=== PATIENT | male | born 1955 | race Caucasian/White ===

== ENCOUNTER 2023-03-28 10:55 | Observation (INO) ==
[2023-03-28] MEDS ORDERED: ONDANSETRON 4 MG/2 ML VIAL IV ONE (11:25)
[2023-03-28] MEDS ORDERED: PANTOPRAZOLE 40 MG VIAL IV ONE (11:25)
[2023-03-28 11:43] LABS: POC Calcium, Ionized 1.32 (1.16-1.32); POC Creatinine 1.7 (0.6-1.2)
[2023-03-28 12:36] LABS: Basophils # (Auto) 0.08 K/mcL (0.00-0.30); Basophils % (Auto) 0.4 % (0.0-2.0); Eosinophils # (Auto) 0.06 K/mcL (0.00-0.70); Eosinophils % (Auto) 0.3 % (0.0-7.0); Hemoglobin 11.6 g/dL (13.7-17.5); Lymphocytes # (Auto) 2.24 K/mcL (1.50-4.80); Lymphocytes % (Auto) 11.9 % (15.5-49.0); Mean Cell Volume 84.4 fL (80.0-100.0); Mean Corpuscular HGB Conc 34.1 g/dL (31.0-36.0); Mean Platelet Volume 11.4 fL (8.8-12.5); Monocytes # (Auto) 1.64 K/mcL (0.10-0.90); Monocytes % (Auto) 8.7 % (1.0-12.0); Neutrophils % (Auto) 77.4 % (38.0-78.0); Platelet Count 338 K/mcL (140-440); RBC 4.03 M/mcL (4.63-6.08); Red Cell Distribution Width 13.7 % (11.5-14.5); WBC 18.8 K/mcL (4.5-11.0)
[2023-03-28] MEDS ORDERED: LACTATED RINGERS 1,000 ML IV ONE (12:41)
[2023-03-28 12:42] LABS: Prothrombin Time 13.8 sec (11.9-14.5)
[2023-03-28 13:06] LABS: ALT/SGPT 16 U/L (<40); AST/SGOT 29 U/L (<40); Albumin 3.3 gm/dL (3.2-5.2); Alkaline Phosphatase 94 U/L (39-117); Bilirubin,Direct < 0.2 mg/dL (0-0.3); Bilirubin,Total 0.3 mg/dL (0.1-1.0); Globulin 3.6 gm/dL (2.2-3.7)
--- NOTE | 2023-03-28 13:49 | Cat Scan Report ---
History: Abdominal pain, blood in stool for one week, prior nephrectomy TECHNIQUE: The abdomen was imaged without contrast in axial plane at 2.5 mm intervals from above the diaphragm through the symphysis pubis. Sagittal and coronal reformats were created. The radiation exposure was limited using dose reduction technology. FINDINGS: There is mild emphysema in both lung bases. No lung mass is present. Evaluation the abdominal organs without contrast is somewhat limited. The liver and spleen are normal in size and homogeneous. The gallbladder appears normal with no calcified stones or thickening of the wall. The bile ducts are nondilated. No abnormality is detected in the pancreas. The stomach is largely decompressed. The duodenal bulb and second portion the duodenum are mildly distended. The kamara are thickened and inflamed and there is inflammation of the surrounding fat. The third and fourth segments of the duodenum are normal. There is some low-attenuation tissue within the second portion of the duodenum which could be ingested material or solid tissue. No adenopathy is present and there is no ascites. The jejunum and ileum appear normal in caliber and noninflamed. The left kidney has been removed. No abnormalities present in the left renal fossa. The right kidney contains approximately 20 calyceal stones. They range in size from 2 to 7 mm. There is no hydronephrosis. There are focal areas of cortical scarring in the lateral portion. There is no obvious renal mass or cyst. The ureters decompressed. Layering posteriorly in the bladder there is a 7 x 11 mm stone. The bladder otherwise appears normal and is normally distended. Prostate is normal in size and contains several calcifications in the transitional zone. Seminal vesicles are small. There are scattered diverticula in the descending and sigmoid colon. There is no evidence of acute diverticulitis. Normal quantity of stool is seen throughout the large intestine. No mass is detected in the large intestine. There is no evidence of appendicitis. There is severe disc space narrowing degeneration at L3-4 and L5-S1 with moderate degeneration at L1-L4 five. IMPRESSION: Abnormal first and second portions of the duodenum. This could be due to peptic ulcer disease and less likely an intraluminal mass. Endoscopy is recommended. Multiple nonobstructing right-sided kidney stones Moderate-sized bladder stone Diverticulosis without diverticulitis Dr. Skinner was called with the results Interpreted and Authenticated by: Titus Enamorado 03/28/23
--- NOTE | 2023-03-28 14:32 | Emergency Department Note ---
HPI General Chief complaint: Rectal Bleed Stated complaint: Rectal Bleeding Time Seen by Provider: 03/28/23 10:58 Source: patient Mode of arrival: wheelchair Limitations: no limitations History of Present Illness HPI Narrative: Narrative: This is a 67-year-old male who presents to the emergency department with 1 week of abdominal pain. Patient states that today he had a bowel movement and noticed that it was black mixed with some bright red blood. The patient is not on any blood thinning medications. He denies any alcohol use. He does report that he has been taking ibuprofen for his abdominal pain. He states his pain is diffuse there is some localization to the midepigastric region. Related Data Home Medications Medication Instructions Recorded Confirmed diphenhydramine HCl 25 mg capsule 25 mg PO QHS PRN Insomnia 05/25/22 03/28/23 (NightTime Sleep Aid (diphenhydramine)) multivitamin 1 tab PO QDAY 05/25/22 03/28/23 ibuprofen 200 mg tablet 200 mg PO .COMPLEX PRN Pain 07/11/22 03/28/23 cholecalciferol (vitamin D3) 50 50 mcg PO QDAY 02/10/23 03/28/23 mcg (2,000 unit) capsule albuterol sulfate 90 mcg/actuation 2 puff inhalation Q6HP PRN wheezing 03/28/23 03/28/23 aerosol inhaler lisinopril 2.5 mg tablet 2.5 mg PO QDAY 03/28/23 03/28/23 Previous Rx's Medication Instructions Recorded fluticasone fur. 200 mcg-umeclid 1 ea PO QDAY #60 ea 09/13/22 62.5 mcg-vilant 25 mcg inhalat.powder (Trelegy Ellipta) metformin 750 mg tablet,extended 750 mg PO BID #180 tabs 01/27/23 release 24 hr Allergies Allergy/AdvReac Type Severity Reaction Status Date / Time oxycodone [From Percocet] AdvReac Intermediate Fever Verified 03/28/23 19:09 Review of Systems ROS ROS Narrative: Narrative: All systems ED: reviewed and negative except as stated. [facility] Narrative Patient History Narrative: Narrative: Medical/Surgical/Family History All Active Problems (Updated 03/29/23 @ 07:36 by Perez Skinner MD) Chronic cough (Chronic) SOB (shortness of breath) (Chronic) Overweight (Chronic) History of COVID-19 (Chronic) Essential hypertension (Chronic) Acquired absence of kidney (Chronic) DM type 2 (diabetes mellitus, type 2) (Chronic) Polymyalgia rheumatica (Chronic) Generalized anxiety disorder (Chronic) Elevated liver enzymes (Chronic) [facility] (current) use of systemic steroids (Chronic) Former smoker (Chronic) Sputum production (Chronic) Wheezing (Chronic) Hydrocele, left (Chronic) Joint pain (Chronic) Muscle stiffness (Chronic) COPD (chronic obstructive pulmonary disease) (Chronic) Nocturnal hypoxia (Chronic) Stomach problems (Chronic) Weight loss (Chronic) Abnormal blood pressure (Chronic) Abnormal blood sugar (Chronic) Periodontal disease (Chronic) Hard of hearing (Chronic) Nocturia (Chronic) Scl-70 antibody positive (Acute) Bleeding duodenal ulcer (Acute) White coat syndrome with diagnosis of hypertension (Acute) Medical History (Updated 03/29/23 @ 07:36 by Perez Skinner MD) Abnormal blood pressure up and down Abnormal blood sugar Acquired absence of kidney left, donated Chronic cough COPD (chronic obstructive pulmonary disease) DM type 2 (diabetes mellitus, type 2) Elevated liver enzymes Essential hypertension Former smoker Quit around 2009 Generalized anxiety disorder Hard of hearing History of COVID-19 Hydrocele, left Joint pain [facility] (current) use of systemic steroids Muscle stiffness Nocturia Nocturnal hypoxia 2 L O2 Overweight Periodontal disease Polymyalgia rheumatica Scl-70 antibody positive SOB (shortness of breath) Sputum production Stomach problems can hardly eat Weight loss Wheezing White coat syndrome with diagnosis of hypertension Surgical History History of kidney surgery (~10/18/92) 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 Alert. No distress. HEENT: NCAT PERRL EOMI. No conjunctivitis. Membranes moist. Neck: Supple, trachea midline Cardiovascular: RRR. No murmur. No rubs. No gallops. Respiratory: No respiratory distress. Breath sounds equal. Lungs clear. Gastrointestinal: Soft. Midepigastric tenderness to palpation no guarding rigidity other peritoneal signs Rectal: Gross melena, guaiac positive Musculoskeletal: No pain. No soft tissue swelling. Good ROM. No signs injury Skin: Warm. Dry. No rash Neurologic: Alert and oriented x3 moves all extremities equally and fully, speech is fluent face is symmetric General Limitations: no limitations Course Vital Signs Vital signs: Vital Signs Temperature 97.0 F 03/28/23 10:56 Pulse Rate 92 H 03/28/23 10:56 Respiratory Rate 18 03/28/23 10:56 Blood Pressure 117/75 03/28/23 10:56 Pulse Oximetry (%) 97 03/28/23 10:56 Oxygen Delivery Method Room Air 03/28/23 10:56 Temperature 99.9 F H 03/29/23 04:00 Pulse Rate 112 H 03/29/23 04:00 Respiratory Rate 18 03/29/23 04:00 Blood Pressure 114/82 03/29/23 04:00 Pulse Oximetry (%) 98 03/29/23 04:00 Oxygen Delivery Method Room Air 03/29/23 04:00 Oxygen Flow Rate (L/min) 0 03/28/23 15:38 [facility] Narrative Medical decision making narrative: Narrative: This is a 67-year-old gentleman who presents to the emergency department with melena and abdominal pain. He is hemodynamically stable some intermittent tachycardia in the low 100s. He was bolused with 80 mg of Protonix on arrival. He does have gross melena on his exam. His CBC shows a hemoglobin of 11.6 his most recent a year ago was around 13. He has a white blood cell count of 18.8, 77% neutrophils. Platelet count of 338. Patient's BUN is 45 with a creatinine of 1.7 this appears to be close to the patient's baseline sodium of 129 blood glucose is 246. Normal liver enzymes and bilirubin. Lipase not suggestive of pancreatitis. A CT scan shows abnormal first and second portions of the duodenum could be peptic ulcer disease less likely intraluminal mass. Fortunately we do have gastroenterology Dr. Lynn who have spoke with Will perform EGD. He would like the patient started on Protonix drip. Lab Data 03/29/23 05:48 03/29/23 05:48 Labs: Lab Results 03/28/23 03/28/23 03/28/23 Range/Units 11:34 11:34 11:34 WBC 18.8 H (4.5-11.0) K/mcL RBC 4.03 L (4.63-6.08) M/mcL Hgb 11.6 L (13.7-17.5) g/dL Hct 34.0 L (40.1-51.0) % POC Hct (41-55) MCV 84.4 (80.0-100.0) fL MCH 28.8 (26.0-34.0) pg MCHC 34.1 (31.0-36.0) g/dL RDW 13.7 (11.5-14.5) % Plt Count 338 (140-440) K/mcL MPV 11.4 (8.8-12.5) fL Immature Gran % (Auto) 1.3 H (0.0-0.5) % Neut % (Auto) 77.4 (38.0-78.0) % Lymph % (Auto) 11.9 L (15.5-49.0) % [place] % (Auto) 8.7 (1.0-12.0) % Eos % (Auto) 0.3 (0.0-7.0) % Baso % (Auto) 0.4 (0.0-2.0) % Lymph # (Auto) 2.24 (1.50-4.80) K/mcL [place] # (Auto) 1.64 H (0.10-0.90) K/mcL Eos # (Auto) 0.06 (0.00-0.70) K/mcL Baso # (Auto) 0.08 (0.00-0.30) K/mcL Immature Gran # 0.24 H (0.00-0.05) K/mcl Absolute Neutrophils 14.51 H (1.80-8.00) K/mcL PT 13.8 (11.9-14.5) sec INR 1.0 (0.9-1.1) VBG Lactic Acid (0.5-2.0) mmol/L POC Sodium (133-145) POC Potassium (3.3-5.1) POC Chloride (96-108) POC Total CO2 (22-30) POC Anion Gap (8.0-16.0) POC BUN (6-20) POC Creatinine (0.6-1.2) POC Glucose (70-105) POC WB Ioniz Calcium (1.16-1.32) Total Bilirubin 0.3 (0.1-1.0) mg/dL Direct Bilirubin < 0.2 (0-0.3) mg/dL AST 29 (<40) U/L ALT 16 (<40) U/L Alkaline Phosphatase 94 (39-117) U/L Total Protein 6.9 (5.9-8.4) gm/dL Albumin 3.3 (3.2-5.2) gm/dL Globulin 3.6 (2.2-3.7) gm/dL Lipase 44 (7-60) U/L 03/28/23 03/28/23 Range/Units 11:34 11:39 WBC (4.5-11.0) K/mcL RBC (4.63-6.08) M/mcL Hgb (13.7-17.5) g/dL Hct (40.1-51.0) % POC Hct 36.0 L (41-55) MCV (80.0-100.0) fL MCH (26.0-34.0) pg MCHC (31.0-36.0) g/dL RDW (11.5-14.5) % Plt Count (140-440) K/mcL MPV (8.8-12.5) fL Immature Gran % (Auto) (0.0-0.5) % Neut % (Auto) (38.0-78.0) % Lymph % (Auto) (15.5-49.0) % [place] % (Auto) (1.0-12.0) % Eos % (Auto) (0.0-7.0) % Baso % (Auto) (0.0-2.0) % Lymph # (Auto) (1.50-4.80) K/mcL [place] # (Auto) (0.10-0.90) K/mcL Eos # (Auto) (0.00-0.70) K/mcL Baso # (Auto) (0.00-0.30) K/mcL Immature Gran # (0.00-0.05) K/mcl Absolute Neutrophils (1.80-8.00) K/mcL PT (11.9-14.5) sec INR (0.9-1.1) VBG Lactic Acid 1.2 (0.5-2.0) mmol/L POC Sodium 129 L (133-145) POC Potassium 4.0 (3.3-5.1) POC Chloride 100 (96-108) POC Total CO2 16.0 L (22-30) POC Anion Gap 18.0 H (8.0-16.0) POC BUN 45 H (6-20) POC Creatinine 1.7 H (0.6-1.2) POC Glucose 246 H (70-105) POC WB Ioniz Calcium 1.32 (1.16-1.32) Total Bilirubin (0.1-1.0) mg/dL Direct Bilirubin (0-0.3) mg/dL AST (<40) U/L ALT (<40) U/L Alkaline Phosphatase (39-117) U/L Total Protein (5.9-8.4) gm/dL Albumin (3.2-5.2) gm/dL Globulin (2.2-3.7) gm/dL Lipase (7-60) U/L Discharge Plan Patient/Caregiver Discharge Instructions 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
[2023-03-28] MEDS ORDERED: KETAMINE 50 MG/ML ML IV PRN (14:43)
[2023-03-28] MEDS ORDERED: PROPOFOL 200 MG/20 ML VIAL IV SCH (14:45)
[2023-03-28] MEDS ORDERED: MIDAZOLAM 2 MG/2 ML VIAL IV SCH (14:45)
--- NOTE | 2023-03-28 14:55 | Internal Med History&Physical ---
HPI History of Present Illness Patient information: Note initiated : 03/28/23 at 2:51 pm Service Date, if different from initiated Date: [] Patient: Braulio Collado a 67 y/o M admitted on . Chief Complaint: [] History of present illness: Mr. Collado is a 67 year old M Presents the ED with abdominal pain and GI bleeding. Patient went to [place] at the brother and while there he developed severe ache and burning abdominal pain with a lot of a lot of gas and tried to belch out all this gas. To continue to worsen each day nothing made it better with milk. He got home last night and prior to getting home he did start to have some dark stools which were concerning to him, however this morning he started have some red blood in the stools as well. He has some nausea but no vomiting. In the ED he was evaluated found to be mildly tachycardic with a hemoglobin of 11.6. Leukocytosis of 18,000 and a sodium of 129. BUN of 45 creatinine 1.7 does have chronic kidney disease which appears to be close to baseline. Dr. Dr. Lynn was contacted and will perform EGD. Patient started on a Protonix drip in the ED. Patient also reports using ibuprofen. Review of Systems: Pertinent positives as above. denies headache/fever/chills/vomiting/chest pain /cough/dyspnea. Remaining 10 point review of system reviewed negative PHYSICAL EXAM General: Alert, Awake, No acute Distress Eyes/N/T: EOMI, no scleral icterus, PERRL, Head/Neck: neck supple, full ROM, normocephalic atraumatic CV: RRR, No murmurs, normal s1/s2 Pulm: Clear b/l, no wheezing/rhonchi/rales, no respiratory distress Abd: soft, nontender, +BS x4 Ext: no clubbing/cyanosis/edema, nontender Neuro: Alert, CN 2-12 grossly intact, no focal deficits, moves all extremities, , sensations intact b/l upper/lower Psychiatric: Skin: warm/dry, normal color PFSH PFSH All Active Problems (Updated 02/10/23 @ 07:48 by Vitor Titus MD) Chronic cough (Chronic) SOB (shortness of breath) (Chronic) Overweight (Chronic) History of COVID-19 (Chronic) Essential hypertension (Chronic) Acquired absence of kidney (Chronic) DM type 2 (diabetes mellitus, type 2) (Chronic) Polymyalgia rheumatica (Chronic) Generalized anxiety disorder (Chronic) Elevated liver enzymes (Chronic) residential (current) use of systemic steroids (Chronic) Former smoker (Chronic) Sputum production (Chronic) Wheezing (Chronic) Hydrocele, left (Chronic) Joint pain (Chronic) Muscle stiffness (Chronic) COPD (chronic obstructive pulmonary disease) (Chronic) Nocturnal hypoxia (Chronic) Stomach problems (Chronic) Weight loss (Chronic) Abnormal blood pressure (Chronic) Abnormal blood sugar (Chronic) Periodontal disease (Chronic) Hard of hearing (Chronic) Nocturia (Chronic) Scl-70 antibody positive (Acute) White coat syndrome with diagnosis of hypertension (Acute) Medical History (Updated 02/10/23 @ 07:48 by Vitor Titus MD) Abnormal blood pressure up and down Abnormal blood sugar Acquired absence of kidney left, donated Chronic cough COPD (chronic obstructive pulmonary disease) DM type 2 (diabetes mellitus, type 2) Elevated liver enzymes Essential hypertension Former smoker Quit around 2009 Generalized anxiety disorder Hard of hearing History of COVID-19 Hydrocele, left 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) use of systemic steroids Muscle stiffness Nocturia Nocturnal hypoxia 2 L O2 Overweight Periodontal disease Polymyalgia rheumatica Scl-70 antibody positive SOB (shortness of breath) Sputum production Stomach problems can hardly eat Weight loss Wheezing White coat syndrome with diagnosis of hypertension Surgical History History of kidney surgery (~10/18/92) 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 Family History Mother Diabetes Heart disease Cancer Hypertension Brother Kidney disease Cancer Family/Other Alcoholism CAD (coronary artery disease) Diabetes Hypertension Social History marital status: single occupational status: retired smoking status: Former smoker quit date: 09/11/01 pack-years: 40 alcohol intake frequency: does not drink substance use type: marijuana MEDS/ALLERGIES Home Medications and Allergies Home Medications Medication Instructions Recorded Confirmed Type calcium carbonate 600 mg calcium 600 mg PO QDAY 12/30/21 02/10/23 History (1,500 mg) tablet (Calcium) diphenhydramine HCl 25 mg capsule 25 mg PO QHS PRN 05/25/22 02/10/23 History (NightTime Sleep Aid (diphenhydramine)) epinephrine 0.125 mg/actuation 1 puff inhalation Q4H PRN 05/25/22 02/10/23 History aerosol inhaler (Primatene Mist) multivitamin 1 tab PO QDAY 05/25/22 02/10/23 History stool softener PO HS 05/25/22 02/10/23 History ibuprofen 200 mg tablet 200 mg PO .COMPLEX PRN 07/11/22 02/10/23 History fluticasone fur. 200 mcg-umeclid 1 ea PO QDAY #60 ea 09/13/22 02/10/23 Rx 62.5 mcg-vilant 25 mcg inhalat.powder (Trelegy Ellipta) albuterol sulfate 90 mcg/actuation 2 puff inhalation Q6H PRN 01/25/23 02/10/23 Rx aerosol inhaler shortness of breath or wheezing #8.5 grams lisinopril 2.5 mg tablet 2.5 mg PO QDAY #90 tabs 01/27/23 02/10/23 Rx metformin 750 mg tablet,extended 750 mg PO BID #180 tabs 01/27/23 02/10/23 Rx release 24 hr cholecalciferol (vitamin D3) 50 50 mcg PO QDAY 02/10/23 02/10/23 History mcg (2,000 unit) capsule Allergies Allergy/AdvReac Type Severity Reaction Status Date / Time acetaminophen [From Percocet] Allergy Unknown Unknown Verified 03/28/23 10:58 oxycodone [From Percocet] Allergy Unknown Fever Verified 03/28/23 10:58 EXAM Constitutional Vitals: Temp Pulse Resp BP Pulse Ox O2 Del Method 97.0 F 98 H 18 129/87 96 Room Air 03/28/23 10:56 03/28/23 14:31 03/28/23 10:56 03/28/23 14:31 03/28/23 14:31 03/28/23 10:56 DATA Data Completed and Pending Labs: Labs from last 24 hours 03/28/23 03/28/23 03/28/23 11:39 11:34 11:34 WBC RBC Hgb Hct POC Hct 36.0 L MCV MCH MCHC RDW Plt Count MPV Immature Gran % (Auto) Neut % (Auto) Lymph % (Auto) [place] % (Auto) Eos % (Auto) Baso % (Auto) Lymph # (Auto) [place] # (Auto) Eos # (Auto) Baso # (Auto) Immature Gran # Absolute Neutrophils PT INR VBG Lactic Acid 1.2 POC Sodium 129 L POC Potassium 4.0 POC Chloride 100 POC Total CO2 16.0 L POC Anion Gap 18.0 H POC BUN 45 H POC Creatinine 1.7 H POC Glucose 246 H POC WB Ioniz Calcium 1.32 Total Bilirubin 0.3 Direct Bilirubin < 0.2 AST 29 ALT 16 Alkaline Phosphatase 94 Total Protein 6.9 Albumin 3.3 Globulin 3.6 Lipase 44 03/28/23 03/28/23 11:34 11:34 WBC 18.8 H RBC 4.03 L Hgb 11.6 L Hct 34.0 L POC Hct MCV 84.4 MCH 28.8 MCHC 34.1 RDW 13.7 Plt Count 338 MPV 11.4 Immature Gran % (Auto) 1.3 H Neut % (Auto) 77.4 Lymph % (Auto) 11.9 L [place] % (Auto) 8.7 Eos % (Auto) 0.3 Baso % (Auto) 0.4 Lymph # (Auto) 2.24 [place] # (Auto) 1.64 H Eos # (Auto) 0.06 Baso # (Auto) 0.08 Immature Gran # 0.24 H Absolute Neutrophils 14.51 H PT 13.8 INR 1.0 VBG Lactic Acid POC Sodium POC Potassium POC Chloride POC Total CO2 POC Anion Gap POC BUN POC Creatinine POC Glucose POC WB Ioniz Calcium Total Bilirubin Direct Bilirubin AST ALT Alkaline Phosphatase Total Protein Albumin Globulin Lipase A/P Narrative A/P Narrative: A: *GIB, likely upper: *Anemia, acute blood loss: 2/2 above *Metabolic acidosis: *Leukocytosis: Suspect reactive, monitor for infection *Hyponatremia: *DM: *HTN: *COPD(not on home O2): *CKD III: P: -NPO -Dr. Gonsalves for endoscopy -Protonix drip -Further recs per GI -serial H&H -avoid NSAIDS -Follow-up acid-base -Monitor electrolytes replace as needed follow-up sodium -Continue home FERNY and home IH's -SSI, hold metformin for now -Home medication reconciliation -ppx: SCD Time Spent With Patient Time: Total time spent is greater than 50% in coordination of care (as documented) at patient's floor/unit and/or counseling patient: Initial: Total time with patient: 55 - 74 minutes
[2023-03-28] MEDS: PANTOPRAZOLE 80 MG in 0.9 % SODIUM CHLORIDE 100 ML IV SCH ×2 (15:02→23:34)
[2023-03-28] MEDS ORDERED: POTASSIUM CHLORIDE 40 MEQ in DEXTROSE 5% IN WATER 500 ML IV PRN (16:12)
[2023-03-28] MEDS ORDERED: HYDROcodone/APAP 5/325MG TABLET PO PRN (16:12)
[2023-03-28] MEDS ORDERED: POTASSIUM CHLORIDE 20 MEQ TABLET PO PRN ×2 (16:12)
[2023-03-28] MEDS ORDERED: 0.9 % SODIUM CHLORIDE 1,000 ML IV SCH (16:12)
[2023-03-28] MEDS ORDERED: MAGNESIUM SULFATE 2 GM/50 ML BAG IV PRN (16:12)
[2023-03-28] MEDS ORDERED: LABETALOL 5 MG/ML ML IV PRN (16:12)
[2023-03-28] MEDS ORDERED: ONDANSETRON 4 MG/2 ML VIAL IV PRN (16:12)
[2023-03-28] MEDS ORDERED: ACETAMINOPHEN 325 MG TABLET PO PRN (16:12)
[2023-03-28] MEDS ORDERED: IPRATROPIUM/ALBUTEROL 3 ML AMPUL.NEB NEB PRN (16:12)
[2023-03-28] MEDS ORDERED: diphenhydrAMINE 25 MG CAPSULE PO PRN (18:40)
[2023-03-28] MEDS ORDERED: DEXTROSE 50% 50 ML VIAL IV PRN (18:40)
[2023-03-28] MEDS ORDERED: DEXTROSE 31 GM ORAL.SUSP PO PRN (18:40)
[2023-03-28] MEDS: INSULIN LISPRO 1 UNIT/0.01 ML UNIT SQ SCH (21:25)
[2023-03-28] MEDS: 0.9 % SODIUM CHLORIDE 10 ML SYRINGE IV SCH (22:00)
[2023-03-29] MEDS: 0.9 % SODIUM CHLORIDE 10 ML SYRINGE IV SCH ×2 (05:54→13:20)
[2023-03-29 07:10] LABS: Hemoglobin 9.9 g/dL (13.7-17.5); Mean Cell Volume 89.9 fL (80.0-100.0); Mean Corpuscular HGB Conc 31.9 g/dL (31.0-36.0); Mean Platelet Volume 11.1 fL (8.8-12.5); Platelet Count 289 K/mcL (140-440); RBC 3.45 M/mcL (4.63-6.08); Red Cell Distribution Width 14.1 % (11.5-14.5); WBC 18.2 K/mcL (4.5-11.0)
[2023-03-29 07:42] LABS: ALT/SGPT 12 U/L (<40); AST/SGOT 27 U/L (<40); Albumin 2.8 gm/dL (3.2-5.2); Albumin/Globulin Ratio 0.9 (1.0-2.3); Alkaline Phosphatase 83 U/L (39-117); Bilirubin,Direct < 0.2 mg/dL (0-0.3); Bilirubin,Total 0.3 mg/dL (0.1-1.0); Blood Urea Nitrogen 34 mg/dL (8-23); Calcium 8.4 mg/dL (8.6-10.4); Carbon Dioxide 16 mmol/L (22-30); Chloride 103 mmol/L (96-108); Globulin 3.1 gm/dL (2.2-3.7); Glomerular Filtration Rate 56; Glucose 120 mg/dL (70-105); Lactate Dehydrogenase 215 U/L (135-225); Triglycerides 164 mg/dL (<150)
[2023-03-29] MEDS ORDERED: diphenhydrAMINE 25 MG CAPSULE PO PRN (07:47)
--- NOTE | 2023-03-29 07:47 | Internal Med Progress Note ---
SUBJECTIVE Subjective Patient information: Note initiated : 03/29/23 at 7:40 am Service Date, if different from initiated Date: [] Patient: Braulio Collado a 67 y/o M admitted on 03/28/23. Chief Complaint: [] Interval history: History of present illness: Mr. Collado is a 67 year old M Presents the ED with abdominal pain and GI bleeding. Patient went to [place] at the brother and while there he developed severe ache and burning abdominal pain with a lot of a lot of gas and tried to belch out all this gas. To continue to worsen each day nothing made it better with milk. He got home last night and prior to getting home he did start to have some dark stools which were concerning to him, however this morning he started have some red blood in the stools as well. He has some nausea but no vomiting. In the ED he was evaluated found to be mildly tachycardic with a hemoglobin of 11.6. Leukocytosis of 18,000 and a sodium of 129. BUN of 45 creatinine 1.7 does have chronic kidney disease which appears to be close to baseline. . Dr. Lynn was contacted and will perform EGD. Patient started on a Protonix drip in the ED. Patient also reports using ibuprofen. 03/29 Patient stated he had some dark bowel movements but no blood. Patient feeling a lot better. Does want to go home. His white blood cell count is still 18,000 but he denies any fevers or feeling ill. We will obtain peripheral smear. Patient really wants to go home today. Dr. Lynn would like 24 hours of Protonix drip. Possibly discharge later today depending. EGD yesterday with several duodenal ulcers but no stigmata of bleeding. Review of Systems: Pertinent positives as above. denies headache/fever/chills/vomiting/chest pain/cough/dyspnea. PHYSICAL EXAM General: Alert, Awake, No acute Distress Eyes/N/T: EOMI, no scleral icterus, Head/Neck: neck supple, full ROM, CV: RRR, No murmurs, Pulm: Clear b/l, no wheezing/rhonchi/rales, no respiratory distress Abd: soft, nontender, +BS x4 Ext: no clubbing/cyanosis/edema, nontender Neuro: Alert, no focal deficits, moves all extremities, , sensations intact b/l upper/lower Psychiatric: Skin: warm/dry, normal color Constitutional Vitals: Vital Signs Temp Pulse Resp BP Pulse Ox O2 Del Method O2 Flow Rate 99.9 F H 112 H 18 114/82 98 Room Air 0 03/29/23 04:00 03/29/23 04:00 03/29/23 04:00 03/29/23 04:00 03/29/23 04:00 03/29/23 04:00 03/28/23 15:38 Period Temp Pulse Resp BP Sys/Sparks Pulse Ox O2 Del Method O2 Flow Rate Last 24 Hr 97.0 F-99.9 F 92-114 18-35 110-140/73-122 94-99 Nasal Cannula- Room Air 0-5 Intake and Output 03/28/23 03/29/23 03/29/23 19:59 03:59 11:59 Intake Total 385 1092 Output Total 600 250 Balance -215 842 Weight 81.556 kg Intake & Output: Intake & Output 03/28/23 03/29/23 03/29/23 19:59 03:59 11:59 Intake Total 385 1092 Output Total 600 250 Balance -215 842 Weight 81.556 kg Intake: IV 85 992 Sodium Chloride 0.9% 1,000 ml @ 992 75 mls/hr IV .[id number] [facility] Rx#: [id number] Protonix 80 mg In Sodium 85 Chloride 0.9% 100 ml @ 8 MG/HR 10 mls/hr IV Q10H DENICE Rx#: [id number] Oral 300 100 Output: Void Amount 600 250 Other: Urine Appearance Clear Clear Urine Color Yellow Yellow # Voids 1 2 OBJ DATA Labs 03/29/23 05:48 03/29/23 05:48 Labs: Abnormal Lab Results 03/29/23 03/28/23 03/28/23 05:48 11:39 11:34 WBC 18.2 H 18.8 H RBC 3.45 L 4.03 L Hgb 9.9 L 11.6 L Hct 31.0 L 34.0 L POC Hct 36.0 L Immature Gran % (Auto) 1.3 H Lymph % (Auto) 11.9 L Person # (Auto) 1.64 H Immature Gran # 0.24 H Absolute Neutrophils 14.51 H POC Sodium 129 L POC Total CO2 16.0 L POC Anion Gap 18.0 H POC BUN 45 H POC Creatinine 1.7 H POC Glucose 246 H Meds: Medications Acetaminophen (Acetaminophen 325 Mg Tablet) 650 mg PO Q6HP PRN; Protocol PRN Reason: Per Pain Protocol/Fever > 101 Hydrocodone Bitart/Acetaminophen (Hydrocodone/Apap 5/325mg Tablet) 1 tab PO Q4HP PRN PRN Reason: PAIN LEVEL 3-6 Albuterol/Ipratropium (Ipratropium/Albuterol 3 Ml Ampul.Neb) 3 ml NEB Q4HP PRN PRN Reason: Shortness Of Breath Dextrose (Dextrose 50% 50 Ml Vial) 0 ml IV UD PRN PRN Reason: Per Sliding Scale Diagnostic Test (Pha) (Accu-Chek 1 Each Strip) 1 each FS [facility] Last Admin: 03/28/23 21:24 Dose: 1 each Diphenhydramine HCl (Diphenhydramine 25 Mg Capsule) 25 mg PO HSP PRN PRN Reason: Insomnia Last Admin: 03/28/23 21:19 Dose: 25 mg Glucose (Dextrose 31 Gm Oral.Susp) 15 gm PO PRN PRN PRN Reason: Hypoglycemia Pantoprazole Sodium 80 mg/ (Sodium Chloride) 100 mls @ 10 mls/hr IV Q10H [facility] Last Admin: 03/28/23 23:34 Dose: 8 mg/hr, 10 mls/hr Potassium Chloride 40 meq/ (Dextrose) 520 mls @ 130 mls/hr IV UD PRN PRN Reason: Potassium < 3 Magnesium Sulfate (Magnesium Sulfate) 2 gm in 50 mls @ 50 mls/hr IV UD PRN PRN Reason: Magnesium </= 1.6 Insulin Human Lispro (Insulin Lispro 1 Unit/0.01 Ml Unit) 0 unit SQ [facility]; Protocol Last Admin: 03/28/23 21:25 Dose: 1 units Labetalol HCl (Labetalol 5 Mg/Ml Ml) 0 mg IV Q2HP PRN PRN Reason: Hypertension Ondansetron HCl (Ondansetron 4 Mg/2 Ml Vial) 4 mg IV Q4HP PRN PRN Reason: Nausea And Vomiting Fluticasone- Umeclidin-Vilanter [ Trelegy Ellipta] Inhaler 1 dose PO QDAY [facility] Potassium Chloride (Potassium Chloride 20 Meq Tablet) 40 meq PO UD PRN PRN Reason: Potssium is 3-3.5 Potassium Chloride (Potassium Chloride 20 Meq Tablet) 40 meq PO UD PRN PRN Reason: Potassium < 3 Sodium Chloride (0.9 % Sodium Chloride 10 Ml Syringe) 10 ml IV Q8 [facility] Last Admin: 03/29/23 05:54 Dose: 10 ml A/P Narrative A/P Narrative: A: *GIB, upper: likey 2/2 NSAID use -EGD with several duodenal ulcers no active bleeding *Anemia, acute blood loss: 2/2 above *Metabolic acidosis: *Leukocytosis: Suspect reactive, monitor for infection -persistent *Hyponatremia: improved *DM: *HTN: *COPD(not on home O2): *CKD III: P: -on clear liquids -Dr. Gonsalves following -Protonix drip to to PO ibd -serial H&H -avoid NSAIDS -peripheral smear pending -Monitor electrolytes replace as needed follow-up sodium -Continue home FERNY and home IH's -SSI, hold metformin for now -ppx: SCD Time Spent With Patient Time: Total time spent is greater than 50% in coordination of care (as documented) at patient's floor/unit and/or counseling patient: Subsequent: Total time with patient: 35 - 49 minutes
[2023-03-29] MEDS: INSULIN LISPRO 1 UNIT/0.01 ML UNIT SQ SCH ×3 (07:53→17:30)
[2023-03-29] MEDS: SODIUM BICARBONATE 650 MG TABLET PO SCH ×2 (08:26→14:23)
[2023-03-29] MEDS ORDERED: Fluticasone-Umeclidin-Vilanter [Trelegy Ellipta] Inhaler PO SCH (09:00)
[2023-03-29] MEDS ORDERED: LISINOPRIL 2.5 MG TABLET PO SCH (09:00)
[2023-03-29] MEDS: PANTOPRAZOLE 80 MG in 0.9 % SODIUM CHLORIDE 100 ML IV SCH ×2 (09:49→10:54)
[2023-03-29 10:21] LABS: Band Neutrophils % 7 % (0-10); Basophils % (Manual) 1 % (0-2); Lymphocytes % 7 % (15-49); Metamyelocytes % 1 %; Monocytes % (Manual) 5 % (1-12); Platelet Estimate NORMAL (Normal); RBC Morphology NORMAL (Normal); Segmented Neutrophils % 79 % (38-78)
--- NOTE | 2023-03-29 10:50 | EGD Procedure Note ---
EGD Procedure Notes Procedure Information Patient information: Note initiated : 03/29/23 at 10:47 am Patient: Braulio Collado 67 y/o M admitted on 03/28/23 for Rectal Bleeding. Date of Procedure: 03/28/23 Pre-Op Diagnosis: Abdominal pain. Melena. Post-Op Diagnosis: Duodenal ulcers x 3. Procedure: EGD with Bx Procedure Narrative: The procedure, alternatives and risks were discussed with the patient and the patient's questions were answered. With endoscopist-administered intravenous sedation, the Olympus video endoscope was introduced into the esophagus. The esophagus, stomach, and duodenum were examined sequentially. There is no esophagitis; there is a small hiatal hernia. Two ulcers were seen in the duodenal bulb as well as post bulbar duodenal ulcer. No visible vessel was seen so the risk of rebleeding is low, but if he rebleeds, he will require transfer to a facility that has interventional radiology. The gastric mucosa, antrum, pyloric ring and duodenum were otherwise normal. Antral biopsy was taken for PAMELA test. The scope was withdrawn. Grafts/Implants: No Findings: Duodenal ulcers x 3. Complications: none Surgeon: Bar Gonsalves Estimated blood loss: 0 Specimens Removed/Pathology: other Condition: stable Disposition: same day Assessment: Duodenal ulcers x 3. No aspirin and NSAIDs. He should remain on PPI therapy for his lifetime.
[2023-03-29 15:33] LABS: Hematocrit 30.2 % (40.1-51.0)
--- NOTE | 2023-03-29 16:12 | Discharge Summary ---
Discharge Provider Provider IMPORTANT FOLLOW-UP INFORMATION FOR PCP: Patient information: Note initiated : 03/29/23 at 4:08 pm Service Date, if different from initiated Date: [] Patient: Braulio Collado 67 y/o M admitted on 03/28/23. Chief Complaint: [] Date of admission: 03/28/23 15:56 Discharge date: 03/29/23 Primary care physician: Vitor Titus MD Consults: 03/28/23 Consult to Physician [CONS] Stat Comment: Consulting Provider: Radu Saab Reason For Exam: Physician to Consult 03/28/23 16:12 Consult to Physician [CONS] Urgent Comment: Consulting Provider: Bar Gonsalves Reason For Exam: Physician to Consult COURSE Hospital Course Hospital course: Mr. Collado is a 67 year old male who presented to the ED with abdominal pain and melena. The patient went to [place] at the brother and while there he developed severe ache and burning abdominal pain with a lot of a lot of gas and tried to belch out all this gas. To continue to worsen each day nothing made it better with milk. He got home last night and prior to getting home he did start to have some dark stools which were concerning to him, however this morning he started have some red blood in the stools as well. He has some nausea but no vomiting. In the ED he was evaluated found to be mildly tachycardic with a hemoglobin of 11.6. Leukocytosis of 18,000 and a sodium of 129. BUN of 45 creatinine 1.7 does have chronic kidney disease which appears to be close to baseline. Dr. Dr. Lynn was contacted and will perform EGD. Patient started on a Protonix drip in the ED. Patient also reports using ibuprofen. 03/29 Patient stated he had some dark bowel movements but no blood. Patient feeling a lot better. Does want to go home. His white blood cell count is still 18,000 but he denies any fevers or feeling ill. We will obtain peripheral smear. Patient really wants to go home today. Dr. Lynn would like 24 hours of Protonix drip. Possibly discharge later today depending. EGD yesterday with several duodenal ulcers but no stigmata of bleeding. The patient stated that he would like to discharge the afternoon. Repeat hemoglobin level was stable. Discussed avoiding NSAIDs with the patient and high-dose PPI treatment for a weeks following hospital discharge. Patient was instructed to return to the ED urgently if he develops recurrent melena or bloody stools. Patient was d ischarged home on Protonix 40 mg p.o. twice daily which she will take for at least 8 weeks then he can continue with once a day PPI. Follow-up with primary care provider and gastroenterology. Follow-up pending EGD biopsy pathology results, pending peripheral blood smear, repeat hemoglobin and WBC. Physical exam Head: Atraumatic, normal inspection. Eyes: normal appearance, no scleral icterus. Neck: full ROM Respiratory: no respiratory distress. GI/Abdominal: soft, nontender, no guarding. Extremities: full range of motion, nontender. Neurological: CN II-XII intact, intact motor, intact sensation. Psychiatric: normal mood. Skin: warm, normal color Discharge diagnosis: Upper GI bleed Time Spent with Patient Time attestation: Total time spent providing and/or coordinating discharge services: Time spent: Less than 30 minutes EXAM Constitutional Vitals: Temp Pulse Resp BP Pulse Ox O2 Del Method O2 Flow Rate 97.7 F 94 H 16 98/73 97 Room Air 0 03/29/23 11:47 03/29/23 11:47 03/29/23 07:40 03/29/23 11:48 03/29/23 11:47 03/29/23 08:00 03/28/23 15:38 Discharge Data Data Completed and Pending Labs on day of discharge: Labs from last 24 hours 03/29/23 03/29/23 03/29/23 14:46 05:48 05:48 WBC RBC Hgb 10.0 L Hct 30.2 L MCV MCH MCHC RDW Plt Count MPV Seg Neutrophils % Band Neutrophils % Lymphocytes % Monocytes % (Manual) Basophils % (Manual) Metamyelocytes % Platelet Estimate RBC Morphology Smear Path Review Pending Sodium 134 Potassium 4.0 Chloride 103 Carbon Dioxide 16 L Anion Gap 15.0 BUN 34 H Creatinine 1.3 H GFR Calculation 56 Glucose 120 H Uric Acid 8.0 Calcium 8.4 L Phosphorus 3.0 Magnesium 1.8 Total Bilirubin 0.3 Direct Bilirubin < 0.2 GGT 23 AST 27 ALT 12 Alkaline Phosphatase 83 Lactate Dehydrogenase 215 Total Protein 5.9 Albumin 2.8 L Globulin 3.1 Albumin/Globulin Ratio 0.9 L Triglycerides 164 H 03/29/23 05:48 WBC 18.2 H RBC 3.45 L Hgb 9.9 L Hct 31.0 L MCV 89.9 MCH 28.7 MCHC 31.9 RDW 14.1 Plt Count 289 MPV 11.1 Seg Neutrophils % 79 H Band Neutrophils % 7 Lymphocytes % 7 L Monocytes % (Manual) 5 Basophils % (Manual) 1 Metamyelocytes % 1 Platelet Estimate Normal RBC Morphology Normal Smear Path Review Sodium Potassium Chloride Carbon Dioxide Anion Gap BUN Creatinine GFR Calculation Glucose Uric Acid Calcium Phosphorus Magnesium Total Bilirubin Direct Bilirubin GGT AST ALT Alkaline Phosphatase Lactate Dehydrogenase Total Protein Albumin Globulin Albumin/Globulin Ratio Triglycerides Discharge Plan Patient/Caregiver Discharge Instructions Activity: resume usual activities as tolerated Diet: Consistent Carbohydrate Instructions: Gastrointestinal Bleeding (GEN), Upper Endoscopy (GEN), GI (Gastrointestinal) Soft Diet (GEN) Activity Restrictions/Additional Instructions: Slowly advance diet to a GI Soft. See education included in your discharge packet. Prescriptions: New pantoprazole 40 mg Tablet,Delayed Release (Dr/Ec) 40 mg PO BIDAC 60 Days Qty: 120 0RF Continued Trelegy Ellipta 200-62.5-25 mcg blister with device 1 ea PO QDAY Qty: 60 6RF Rx Instructions: Rinse, gargle and spit with water in mouth after use. metformin 750 mg tablet extended release 24 hr 750 mg PO BID Qty: 180 1RF cholecalciferol (vitamin D3) 50 mcg (2,000 unit) capsule 50 mcg PO QDAY diphenhydramine HCl [NightTime Sleep Aid (diphen)] 25 mg capsule 25 mg PO QHS PRN (Reason: Insomnia) multivitamin Tablet 1 tab PO QDAY albuterol sulfate 90 mcg/actuation HFA aerosol inhaler 2 puff INHALATION Q6HP PRN (Reason: wheezing) lisinopril 2.5 mg tablet 2.5 mg PO QDAY Discontinued ibuprofen 200 mg tablet 200 mg PO .COMPLEX PRN (Reason: Pain) Rx Instructions: 200 mg orally PRN; Follow Up Plan Follow up with: Bar Gonsalves MD [Physician] - 04/06/23 12:45 pm (Please arrive 15 minutes early) Vitor Titus MD [Primary Care Provider] - (They will contact you to schedule an appointment) Patient Disposition: Home, Self-Care Prognosis: Good Overall status at discharge: patient is progressing back to baseline Discharge Orders: Discharge Order (Routine); Ordered 03/29/23 Ordered By: Jam Gibson
[2023-03-29] MEDS ORDERED: PANTOPRAZOLE 40 MG TABLET PO SCH (21:00)
== END 2023-03-29 17:20 | disposition home or self-care (01) ==
LOC: ED 10:55 → SSSU 15:06 → ICU 15:06
PROVIDERS: ADMIT Internal Medicine; ATTEND Internal Medicine